=== PATIENT | male | born 1965 | race Caucasian/White ===

== ENCOUNTER 2018-06-07 05:35 | Day surgery (SDC) | payer BC, MEDICAID ==
[~2018-06-07 05:35] MED LIST: Dextrose 5%-0.45% NaCl 1,000 ML IV SCH; Sodium Chloride 0.9% 10 ML Syringe FLUSH PRN
[2018-06-07] MEDS ORDERED: Midazolam 1 MG/ML 2 ML SDV IV ONE ×7 (05:36→06:34)
[2018-06-07] MEDS ORDERED: fentaNYL 100 MCG/2 ML SDV IV ONE ×3 (05:36→06:25)
[2018-06-07] MEDS ORDERED: Sodium Chloride 0.9% 10 ML Syringe FLUSH PRN (06:00)
[2018-06-07] MEDS ORDERED: Dextrose 5%-0.45% NaCl 1,000 ML IV SCH (06:00)
[2018-06-07] MEDS ORDERED: fentaNYL 100 MCG/2 ML SDV ONE (06:10)
[2018-06-07] MEDS ORDERED: Midazolam 1 MG/ML 2 ML SDV ONE (06:10)
--- NOTE | 2018-06-07 07:33 | OR ---
DATE: 06/07/2018 PROCEDURE PERFORMED: Total colonoscopy and cold snare polypectomy. INSTRUMENT USED: [id number] Olympus video colonoscope. PREMEDICATIONS: Fentanyl 100 mcg intravenous and Versed 4 mg intravenous, nasal O2 cannula. The procedure was done under pulse oximetry, BP recording, and electronic device monitor. INDICATION: The patient with rectal bleeding and intermittent diarrhea. Colonoscopic examination is done for detection of any polypoid lesions and removal, endoscopic hemostasis therapy if needed. DESCRIPTION OF PROCEDURE: Initial rectal exam was unremarkable. Rigid anoscopy showed small internal hemorrhoids without bleeding from them. The colonoscope was passed with ease. In the distal descending colon, 3-mm sized benign- appearing polyp was noted. Photograph was taken. Cold snare polypectomy was done, the tissue was retrieved and sent for histopathology. The scope was passed with ease up to the ileocecal area. Photographs were taken of the normal- appearing cecum, identified by landmarks of appendiceal orifice and double- bulged ileocecal folds. No bleeding was noted from any of the visualized areas at the commencement of the examination. The bowel preparation was found to be adequate, [place] scale 3. No stricture. No vascular ectasia. No large isolated ulcerations seen. No evidence of diffuse inflammatory bowel disease in the form of friability, contact bleeding, or ulcerations. Probing the proximal sides of folds and flexures using adequate distention and clearing up the stool material and withdrawal of the scope was made. Cecum to rectum time over 6 minutes. No bleeding was noted from any of the visualized areas at the completion of examination. IMPRESSION: 1. Internal hemorrhoids. 2. Diminutive descending colon polyp. The patient tolerated the procedure well. [facility] /[id number]
[2018-06-07 10:27] VITALS: BP 114/68
== END 2018-06-07 08:50 | disposition home or self-care (01) ==
LOC: DL.ENDO 05:35
PROVIDERS: ATTEND Internal Medicine Gastroenterology
DX: K62.5 Hemorrhage of anus and rectum (principal); D12.4 Benign neoplasm of descending colon; K64.8 Other hemorrhoids; F17.210 Nicotine dependence, cigarettes, uncomplicated; E66.09 Other obesity due to excess calories; Z68.30 Body mass index [BMI] 30.0-30.9, adult; Z90.49 Acquired absence of other specified parts of digestive tract
CPT/HCPCS: 45385; J2250; J3010; J7042